=== PATIENT | male | born 1965 | race Hispanic/Latino ===

== ENCOUNTER 2020-10-03 06:19 | Day surgery (SDC) | payer OTHER ==
[2020-09-29 09:50] VITALS: BP 121/71
[2020-09-29 11:29] LABS: BASOPHILS % (AUTO) 0.7 % (0.0-5.0); EOSINOPHILS % (AUTO) 5.1 % (0.0-8.0); HEMATOCRIT 44.4 % (42-54); MEAN CORPUSCULAR HEMOGLOBIN 29.3 pg (27.0-33.0); MEAN CORPUSCULAR HGB CONC 33.1 g/dL (32.0-36.0); MEAN CORPUSCULAR VOLUME 88.4 fL (79-99); MONOCYTES % (AUTO) 8.4 % (3.0-13.0); NEUTROPHILS % (AUTO) 58.6 % (40.0-77.0); PLATELET COUNT (AUTO) 287 K/uL (130-400); RED BLOOD CELL COUNT(AUTO) 5.02 MIL/uL (4.50-6.20); RED CELL DISTRIBUTION WIDTH 13.5 % (11.0-15.5); WHITE BLOOD COUNT (AUTO) 5.9 K/uL (4.8-10.8)
[2020-09-29 11:33] LABS: CREATININE 1.2 mg/dL (0.5-1.5); POTASSIUM 3.8 mmol/L (3.5-5.1)
[2020-10-03] VITALS (18 sets, daily range): BP systolic 121–165; BP diastolic 53–80
[~2020-10-03] VITALS: Ht 162.6 cm; Wt 86.6 kg
[~2020-10-03 06:19] MED LIST: LISI20TA24 PO
[2020-10-03] MEDS ORDERED: LACTATED RINGERS 1000ML 1,000 ML IV ONE (07:21)
[2020-10-03] MEDS ORDERED: EPINEPHRINE 1 MG/ML 30ML VIAL IJ ONE (08:00)
[2020-10-03] MEDS: CEFAZOLIN SODIUM 1 GM VIAL IVP ONE ×2 (08:02→09:16)
[2020-10-03] MEDS ORDERED: LIDOCAINE HCL-MPF 1% 5ML AMP IJ ONE (08:47)
[2020-10-03] MEDS ORDERED: MIDAZOLAM HCL 1 MG/ML 2ML VIAL ONE (08:48)
[2020-10-03] MEDS ORDERED: DEXAMETHASONE SOD PHOSPHATE 10MG/ML 1ML VIAL ONE (08:48)
[2020-10-03] MEDS ORDERED: PROPOFOL 10 MG/ML 20ML VIAL IV ONE (08:48)
[2020-10-03] MEDS ORDERED: ONDANSETRON 4MG INJ ONE ×2 (08:48→12:38)
[2020-10-03] MEDS ORDERED: FENTANYL CITRATE PF 50 MCG/1 ML 2ML VIAL ONE (08:49)
[2020-10-03] MEDS ORDERED: ROPIVACAINE 0.5% 5MG/ML 30ML IJ ONE (08:51)
[2020-10-03] MEDS ORDERED: ROCURONIUM 10MG/1ML SYR 10 MG/ML ML ONE (08:52)
[2020-10-03] MEDS ORDERED: EPHEDRINE SULFATE 50 MG/ML AMPULE ONE ×2 (09:17→10:59)
[2020-10-03] MEDS ORDERED: HYDR-4060 PO (11:18)
[2020-10-03] MEDS ORDERED: IBUP-2077 PO (11:18)
[2020-10-03] MEDS ORDERED: CEPH500B PO (11:18)
== END 2020-10-03 13:35 | disposition home or self-care (01) ==
LOC: DAH 06:19
PROVIDERS: ATTEND Orthopaedic Surgery
DX: S43.432A Superior glenoid labrum lesion of left shoulder, initial encounter (principal); S46.119A Strain of muscle, fascia and tendon of long head of biceps, unspecified arm, initial encounter; M75.82 Other shoulder lesions, left shoulder; M19.012 Primary osteoarthritis, left shoulder; Z20.828 Contact with and (suspected) exposure to other viral communicable diseases; I10 Essential (primary) hypertension; G47.33 Obstructive sleep apnea (adult) (pediatric); X58.XXXA Exposure to other specified factors, initial encounter; Y93.89 Activity, other specified; Y92.89 Other specified places as the place of occurrence of the external cause; Y99.8 Other external cause status
CPT/HCPCS: 29824; 29826; 29827; 36415; 64415; 76942; 80048; 85025; A4215; A4221; A4222; A4223; A4565; A4600; A4649 ×6; A4663; A4930 ×2; A5120; A6204; C1713; C9803; J0171; J0690; J1100; J2250; J2405 ×2; J2704; J2795; J3010; J3490 ×3; J7030; J7120; U0003